=== PATIENT | female | born 1990 | race Two or more races ===

== ENCOUNTER 2021-05-27 15:25 | Outpatient (CLI) | payer OTHER | END 2021-05-27 15:35 | disposition home or self-care (01) | LOC: PPH VACUNA 15:25 | PROVIDERS: ATTEND Emergency Medicine Pediatric Emergency Medicine | DX: Z23 Encounter for immunization (principal) ==

== ENCOUNTER 2025-04-03 19:46 | Emergency (ER) | payer OTHER ==
[~2025-04-03] VITALS: Ht 165.1 cm; Wt 57.6 kg
[2025-04-03 21:33] VITALS: BP 116/87; O2SAT 100
[2025-04-03] MEDS ORDERED: SPRINTEC 28 DA1 EAC1 PO (21:36)
[2025-04-03] MEDS ORDERED: SIMVASTATIN5 MG PO (21:36)
[2025-04-03] MEDS ORDERED: ONDANSETRON HCL 2 MG/ML VIAL IV STA (22:06)
[2025-04-03] MEDS ORDERED: 0.9 % SODIUM CHLORIDE 1,000 ML IV STA (22:06)
[2025-04-03] MEDS ORDERED: FAMOTIDINE/PF 20 MG/2 ML VIAL IV STA (22:06)
[2025-04-03] MEDS ORDERED: FAMOTIDINE/PF 20 MG/2 ML VIAL ONE (22:11)
[2025-04-03] MEDS ORDERED: METOCLOPRAMIDE HCL 5 MG/ML VIAL ONE (22:11)
[2025-04-03] MEDS ORDERED: ONDANSETRON HCL 2 MG/ML VIAL ONE (22:11)
[2025-04-03] MEDS ORDERED: METOCLOPRAMIDE HCL 5 MG/ML VIAL IV ONE (22:15)
[2025-04-03 23:25] LABS: BASO % 0.0 % (0.1-1.2); EOS # 0.01 (0.04-0.54); EOS % 0.2 % (0.7-7.0); LYMPH # 0.52 (1.18-3.74); LYMPH % 12.0 % (19.3-53.1); MEAN PLATELET VOLUME 11.70 fl (9.4-12.4); MONO # 0.41 (0.24-0.82); MONO % 9.4 % (4.7-12.5); NEUT # 3.38 (1.56-6.13); NEUT % 77.9 % (34.0-71.1); RED CELL DISTRIBUTION WIDTH 11.9 % (11.6-14.4)
[2025-04-03 23:28] LABS: URINE APPEARANCE Clear; URINE BILIRRUBIN Negative (NEGATIVE); URINE BLOOD Large; URINE COLOR Yellow; URINE GLUCOSE Negative (NEGATIVE); URINE KETONE Trace (NEGATIVE); URINE LEUKOCYTE Small; URINE NITRATE Negative; URINE PROTEIN 30 (NEGATIVE); URINE UROBILINOGEN 0.2 E.U./dl
[2025-04-03 23:34] LABS: URINE EPITHELIAL CELLS 57.6 uL (0.0-38.8); URINE RBC 183.6 uL (0.0-20.8); URINE WBC 43.5 uL (0.0-23.2)
[2025-04-03 23:35] LABS: URINE CAST 0.58 uL (0.0-1.40)
[2025-04-03 23:55] LABS: ALT/SGPT 24 U/L (12-78); AST/SGOT 25 U/L (15-37); BILIRUBIN TOTAL 0.25 mg/dL (0.3-1.2); BILIRUBIN,CONJUGATED < 0.10 mg/dL (0.0-0.2); BUN CREA RATIO 11 (7.0-25.0); CREATININE SERUM 0.64 mg/dL (0.55-1.02); GFR 106.22; GLUCOSE FASTING 113 mg/dL (65-100); OSMOLALITY SERUM 274 MOSM/KG (275-295)
[2025-04-03 23:56] LABS: INR 0.98
[2025-04-04] MEDS ORDERED: PEPCID40 MG PO (02:00)
[2025-04-04] MEDS ORDERED: ZOFRAN8 MG PO (02:00)
[2025-04-04] MEDS ORDERED: INTESTINEX680 M2 PO (02:00)
== END 2025-04-04 02:15 ==
LOC: ER 19:46
PROVIDERS: General Practice
DX: K52.9 Noninfective gastroenteritis and colitis, unspecified (principal); R10.9 Unspecified abdominal pain